=== PATIENT | female | born 1955 | race Caucasian/White ===

== ENCOUNTER 2022-10-11 11:11 | Emergency (ER) | payer MEDICARE ==
[2022-10-11] MEDS ORDERED: Acetaminophen 500 MG TAB ONE (11:34)
== END 2022-10-11 12:40 | disposition home or self-care (01) ==
LOC: ERS 11:11
DX: S52.501A Unspecified fracture of the lower end of right radius, initial encounter for closed fracture (principal); I10 Essential (primary) hypertension; W19.XXXA Unspecified fall, initial encounter
CPT/HCPCS: 29125

== ENCOUNTER 2022-11-30 18:46 | Inpatient (IN) | payer MEDICARE ==
[~2022-11-30 18:46] MED LIST: Iopamidol 370 76% 100 ML VIAL ONE
[2022-11-30] MEDS ORDERED: NOREPINEPHRINE 8 MG/250 ML-D5W 250 ML ONE ×2 (18:56→23:31)
[2022-11-30] MEDS ORDERED: EPINEPHrine 1 MG/ML VIAL ONE (19:19)
[2022-11-30 20:06] LABS: ALT (SGPT) 11 U/L (8-55); AST (SGOT) 21 U/L (5-34); Albumin 3.3 g/dL (3.4-4.8); Alkaline Phosphatase 79 U/L (40-110); Bilirubin, Total 0.5 mg/dL (0.2-1.2); Calc. Creatinine Clearance 0 mL/min (70-130); Calcium 8.4 mg/dL (7.8-10.44); Chloride 112 mmol/L (98-107); Estimated GFR 4; Glucose 125 mg/dL (80-115); Lipase 571 U/L (8-78); Protein, Total 6.3 g/dL (5.8-8.1); Sodium 131 mmol/L (136-145)
[2022-11-30 20:17] LABS: BUN (Urea Nitrogen) 178 mg/dL (9.8-20.1)
[2022-11-30 20:22] LABS: Carbon Dioxide Less than 8 mmol/L (23-31); Potassium 7.7 mmol/L (3.5-5.1)
[2022-11-30 20:24] LABS: Hemoglobin 10.2 g/dL (12.0-16.0); Mean Corpuscular HGB CONC 31.8 g/dL (32.0-36.0); Mean Corpuscular Hemoglobin 31.4 pg (27.0-31.0); Red Blood Cell (RBC) Count 3.23 mill/uL (4.20-5.40); White Blood Cell (WBC) Count 15.5 10x3/uL (4.8-10.8)
[2022-11-30 20:26] LABS: CKMB 5.8 ng/mL (0-6.6)
[2022-11-30 20:27] LABS: INR-International Normal Ratio 1.4; Prothrombin Time 18.1 sec (12.0-14.7)
[2022-11-30 20:33] LABS: PTT 22.5 sec (22.9-36.1)
[2022-11-30 20:38] LABS: Clarity Extra Turbid (Clear); Leukocyte Large (Negative); Nitrite Negative (Negative)
[2022-11-30 20:39] LABS: Bilirubin Small (Negative); Glucose, Urine (Dipstick) Negative (Negative); Ketone, Urine Trace mg/dL (Negative); Protein, Urine (Dipstick) > or equal to 300 mg/dL (Neg-Trace); Urobilinogen 0.2 mg/dL (Less than 2)
[2022-11-30 20:40] LABS: Blood, Urine Large (Negative)
[2022-11-30 20:41] LABS: Bacteria/HPF 3+ HPF (None Seen); WBC/HPF Greater than 50 HPF (0-3)
[2022-11-30] MEDS ORDERED: Insulin Regular 300 UNITS/3 ML VIAL ONE (20:44)
[2022-11-30] MEDS ORDERED: Sodium Bicarb 50 MEQ/50 ML VIAL ONE (20:44)
[2022-11-30 20:47] LABS: #Basophils 0.1 thou/uL (0.0-0.2); #Eosinphils 0.1 thou/uL (0.0-0.7); #Lymphocytes 1.8 thou/uL (1.20-3.40); #Monocytes 0.8 thou/uL (0.11-0.59); #Neutrophils 12.7 thou/uL (1.40-6.50); %Basophils 0.6 % (0.0-1.0); %Lymphocytes 11.4 % (21.0-51.0); %Monocytes 5.2 % (0.0-10.0); %Neutrophils 81.9 % (42.0-75.0); MDiff Complete? YES; Macrocytosis SLIGHT = 6-15 cells (100X) (0-5/hpf); Mean Platelet Volume 11.9 fL (7.4-10.4); Platelet Count 116 10x3/uL (130-400); Platelet Morphology Comment Appears Decreased; Polychromasia SLIGHT = 2-3 cells (100X) (0-2/hpf)
[2022-11-30] MEDS ORDERED: Calcium Chloride 1 GM/10 ML Abboject SYRINGE ONE (20:47)
[2022-11-30] MEDS ORDERED: Dextrose 50% Abboject 50 ML SYRINGE ONE (20:48)
[2022-11-30] MEDS ORDERED: Cefepime 2 GM VIAL ONE (21:16)
[2022-11-30] MEDS ORDERED: Haloperidol Lactate 5 MG/ML VIAL ONE (22:01)
[2022-11-30] MEDS ORDERED: Communication Order-Pharmacy FS ONE (22:48)
[2022-11-30] MEDS ORDERED: Ventilator Sedation Protocol 1 EACH FS ONE (22:48)
[2022-11-30] MEDS ORDERED: Acetaminophen 325 MG TAB PO PRN (22:57)
[2022-11-30] MEDS ORDERED: Ondansetron PF 4 MG/2 ML Vial IVP PRN (22:57)
[2022-11-30] MEDS ORDERED: Acetaminophen 650 MG Suppository PR PRN (22:57)
[2022-11-30] MEDS ORDERED: Senokot S 8.6-50 MG TAB PO PRN (22:57)
[2022-11-30] MEDS ORDERED: Ondansetron ODT 4 MG TAB PO PRN (22:57)
[2022-11-30] MEDS ORDERED: EPINEPHrine 4 MG in Dextrose 5% in Water 250 ML IV SCH (23:00)
[2022-11-30] MEDS ORDERED: Fentanyl CADD 100 ML IV SCH (23:15)
[2022-11-30] MEDS ORDERED: Propofol 1,000 MG/100 ML VIAL IV PRN (23:15)
[2022-11-30] MEDS ORDERED: Propofol BOLUS 1,000 MG/100 ML VIAL IV PRN (23:15)
[2022-11-30] MEDS ORDERED: Morphine 2 MG/ML VIAL SLOW IVP PRN (23:15)
[2022-11-30] MEDS ORDERED: Vasopressin 20 UNITS, Admixture Fee 1 EACH in Sodium Chloride 0.9% 50 ML IV SCH (23:15)
[2022-11-30] MEDS ORDERED: DISCONTINUE PREVIOUS NARCOTIC PAIN MEDICATIONS AND BENZODIAZEPINES FS SCH (23:15)
[2022-11-30] MEDS ORDERED: Fentanyl BOLUS 250 ML IVPB PRN (23:15)
[2022-11-30] MEDS ORDERED: Lorazepam 2 MG/ML VIAL SLOW IVP PRN (23:15)
[2022-11-30 23:53] LABS: HBSAB Concentration Less than 8.00 mIU/mL; HBSAg Index 0.24 S/CO (0-0.99); Hep B Core Total Ab Non-Reactive (NonReactive); Hep B Surf AB Non-Reactive (NonReactive); Hep B Surf Ag Non-Reactive S/CO (NonReactive); Hep C IgG Ab Non-Reactive S/CO (NonReactive); Hep C Index 0.08 S/CO (0-0.79)
[2022-12-01] MEDS ORDERED: Haloperidol Lactate 5 MG/ML VIAL ONE (00:34)
[2022-12-01] MEDS ORDERED: Haloperidol Lactate 5 MG/ML VIAL SLOW IVP SCH (00:45)
[2022-12-01] MEDS ORDERED: Vancomycin Dose by Levels Sliding Scale (Wt > 99) FS SCH (01:00)
[2022-12-01] MEDS: Sodium Bicarbonate 150 MEQ in Dextrose 5% in Water 1,000 ML IV SCH ×6 (01:52→21:11)
[2022-12-01] MEDS: NOREPINEPHRINE 8 MG/250 ML-D5W 250 ML IVPB SCH ×3 (03:12→15:35)
[2022-12-01 04:48] LABS: Phosphorus 4.9 mg/dL (2.3-4.7)
[2022-12-01 04:49] LABS: ALT (SGPT) 13 U/L (8-55); AST (SGOT) 23 U/L (5-34); Albumin 3.1 g/dL (3.4-4.8); Alkaline Phosphatase 75 U/L (40-110); Anion Gap 23 mmol/L (10-20); BUN (Urea Nitrogen) 108 mg/dL (9.8-20.1); Bilirubin, Total 0.6 mg/dL (0.2-1.2); Calc. Creatinine Clearance 0 mL/min (70-130); Calcium 8.2 mg/dL (7.8-10.44); Carbon Dioxide 11 mmol/L (23-31); Chloride 105 mmol/L (98-107); Estimated GFR 6; Globulin 2.6 g/dL (2.4-3.5); Glucose 257 mg/dL (80-115); Magnesium 1.5 mg/dL (1.6-2.6); Potassium 4.7 mmol/L (3.5-5.1); Protein, Total 5.7 g/dL (5.8-8.1); Sodium 134 mmol/L (136-145)
[2022-12-01 05:03] VITALS: BMI 50.7
[2022-12-01 06:16] LABS: Creatinine, Urine 120.99 mg/dL (47-110)
[2022-12-01 06:21] LABS: Hemoglobin 9.5 g/dL (12.0-16.0); Mean Corpuscular HGB CONC 32.7 g/dL (32.0-36.0); Mean Corpuscular Hemoglobin 31.7 pg (27.0-31.0); Mean Corpuscular Volume 97.1 fl (78.0-98.0); Mean Platelet Volume 11.6 fL (7.4-10.4); Platelet Count 106 10x3/uL (130-400); Red Blood Cell (RBC) Count 2.98 mill/uL (4.20-5.40); White Blood Cell (WBC) Count 22.2 10x3/uL (4.8-10.8)
[2022-12-01] MEDS ORDERED: HumaLOG 300 UNITS/3 ML VIAL SC SCH (06:45)
[2022-12-01] MEDS ORDERED: Magnesium 2 GM/50 ML(in water) 2 GM in Premix Bag 1 BAG IVPB SCH (07:00)
[2022-12-01] MEDS ORDERED: Dextrose 5% in Water 1,000 ML IV PRN (07:00)
[2022-12-01] MEDS ORDERED: Dextrose 50% Abboject 50 ML SYRINGE IVP PRN (07:00)
[2022-12-01] MEDS: Heparin 5,000 UNITS/ML VIAL SC SCH ×3 (08:42→20:05)
[2022-12-01] MEDS: HumaLOG 300 UNITS/3 ML VIAL SC PRN ×3 (08:42→20:06)
[2022-12-01] MEDS: Pantoprazole 40 MG VIAL IVP SCH (08:43)
[2022-12-01] MEDS ORDERED: Pantoprazole 40 MG VIAL IVP SCH (09:00)
[2022-12-01] MEDS ORDERED: Vancomycin HCl 1.5 GM in Sodium Chloride 0.9% 250 ML 300 ML IVPB SCH (09:00)
[2022-12-01 09:16] LABS: Band 4 % (5-11); Lymphocytes 6 % (21-51); MDiff Complete? YES; Monocytes 4 % (0-10); Neutrophil 85 % (42-75); Platelet Morphology Comment Appears Decreased; Polychromasia SLIGHT = 2-3 cells (100X) (0-2/hpf); Reactive Lymphocytes 1 % (0-10); Tear Drops SLIGHT = 2-5 cells (100X) (0-1/hpf)
[2022-12-01 09:49] LABS: Hemoglobin A1c 4.8 % (4.0-6.0)
[2022-12-01] MEDS ORDERED: Meropenem 1 GM in Sodium Chloride 0.9% 100 ML IVPB SCH ×2 (13:00→14:00)
[2022-12-01 19:37] LABS: Anion Gap 15 mmol/L (10-20); BUN (Urea Nitrogen) 104 mg/dL (9.8-20.1); Calc. Creatinine Clearance 18 mL/min (70-130); Calcium 7.7 mg/dL (7.8-10.44); Carbon Dioxide 26 mmol/L (23-31); Chloride 97 mmol/L (98-107); Estimated GFR 7; Glucose 162 mg/dL (80-115); Potassium 4.7 mmol/L (3.5-5.1); Sodium 133 mmol/L (136-145)
[2022-12-01] MEDS: Meropenem 500 MG in Sodium Chloride 0.9% 100 ML IVPB SCH (20:06)
[2022-12-01] MEDS ORDERED: Cefepime 1 GM in Sodium Chloride 0.9% 100 ML IVPB SCH (21:00)
[2022-12-01 23:40] LABS: Vancomycin, Random 18.3 ug/mL (See Comment)
[2022-12-01] MEDS ORDERED: Vancomycin HCl 750 MG in Sodium Chloride 0.9% 250 ML 250 ML IVPB SCH (23:59)
[2022-12-02] MEDS: NOREPINEPHRINE 8 MG/250 ML-D5W 250 ML IVPB SCH (00:05)
[2022-12-02 04:27] LABS: Anion Gap 18 mmol/L (10-20); BUN (Urea Nitrogen) 103 mg/dL (9.8-20.1); Calc. Creatinine Clearance 19 mL/min (70-130); Calcium 7.5 mg/dL (7.8-10.44); Carbon Dioxide 25 mmol/L (23-31); Chloride 95 mmol/L (98-107); Estimated GFR 7; Glucose 112 mg/dL (80-115); Potassium 4.4 mmol/L (3.5-5.1); Sodium 134 mmol/L (136-145)
[2022-12-02 05:13] LABS: #Eosinphils 0.2 thou/uL (0.0-0.7); #Lymphocytes 1.5 thou/uL (1.20-3.40); #Monocytes 0.5 thou/uL (0.11-0.59); #Neutrophils 9.2 thou/uL (1.40-6.50); %Eosinophils 1.7 % (0.0-10.0); %Monocytes 4.8 % (0.0-10.0); %Neutrophils 80.5 % (42.0-75.0); Hemoglobin 7.8 g/dL (12.0-16.0); Mean Corpuscular HGB CONC 32.7 g/dL (32.0-36.0); Mean Corpuscular Hemoglobin 31.2 pg (27.0-31.0); Mean Corpuscular Volume 95.1 fl (78.0-98.0); Mean Platelet Volume 12.1 fL (7.4-10.4); Platelet Count 60 10x3/uL (130-400); Platelet Morphology Comment Appears Decreased; RBC Distribution Width 12.6 % (11.5-14.5); White Blood Cell (WBC) Count 11.5 10x3/uL (4.8-10.8)
[2022-12-02] MEDS: Pantoprazole 40 MG VIAL IVP SCH (08:01)
[2022-12-02] MEDS: Heparin 5,000 UNITS/ML VIAL SC SCH ×3 (08:01→20:02)
[2022-12-02] MEDS: Sodium Bicarbonate 150 MEQ in Dextrose 5% in Water 1,000 ML IV SCH ×2 (08:01→19:56)
[2022-12-02] MEDS ORDERED: Norepinephrine 8 MG in Dextrose 5% in Water 242 ML IVPB PRN (08:45)
[2022-12-02 09:01] LABS: Iron 60 ug/dL (50-170); Iron Binding Capacity, Total 130 mcg/dL (265-497)
[2022-12-02] MEDS: Meropenem 500 MG in Sodium Chloride 0.9% 100 ML IVPB SCH ×2 (09:06→21:35)
[2022-12-02] MEDS ORDERED: Albumin 25% 25 GM/100 ML BOT IVPB SCH (12:15)
[2022-12-02] MEDS: Albumin 25% 25 GM/100 ML BOT IVPB SCH ×2 (17:55→23:12)
[2022-12-03 01:22] LABS: Vancomycin, Random 21.4 ug/mL (See Comment)
[2022-12-03] MEDS: Albumin 25% 25 GM/100 ML BOT IVPB SCH ×2 (06:15→11:44)
[2022-12-03] MEDS: Sodium Bicarbonate 150 MEQ in Dextrose 5% in Water 1,000 ML IV SCH (06:15)
[2022-12-03 07:34] LABS: #Eosinphils 0.1 thou/uL (0.0-0.7); #Monocytes 0.3 thou/uL (0.11-0.59); #Neutrophils 4.2 thou/uL (1.40-6.50); %Lymphocytes 16.9 % (21.0-51.0); %Monocytes 5.3 % (0.0-10.0); %Neutrophils 75.4 % (42.0-75.0); Hemoglobin 6.5 g/dL (12.0-16.0); Mean Corpuscular HGB CONC 31.3 g/dL (32.0-36.0); Mean Corpuscular Hemoglobin 30.1 pg (27.0-31.0); Mean Corpuscular Volume 96.3 fl (78.0-98.0); RBC Distribution Width 13.5 % (11.5-14.5); Red Blood Cell (RBC) Count 2.16 mill/uL (4.20-5.40); White Blood Cell (WBC) Count 5.5 10x3/uL (4.8-10.8)
[2022-12-03 07:39] LABS: Platelet Count 37 10x3/uL (130-400)
[2022-12-03 07:40] LABS: Albumin 3.3 g/dL (3.4-4.8); Anion Gap 17 mmol/L (10-20); BUN (Urea Nitrogen) 99 mg/dL (9.8-20.1); BUN/Creatinine Ratio 16.84; Calc. Creatinine Clearance 19 mL/min (70-130); Calcium 7.5 mg/dL (7.8-10.44); Carbon Dioxide 32 mmol/L (23-31); Chloride 91 mmol/L (98-107); Estimated GFR 7; Glucose 95 mg/dL (80-115); Potassium 4.1 mmol/L (3.5-5.1); Sodium 136 mmol/L (136-145)
[2022-12-03 08:17] LABS: CellaVision Operator ID LAB.GE; Hypochromia SLIGHT = 6-15 cells HPF (0-5); Platelet Morphology Comment Platelets Decreased; Polychromasia SLIGHT = 2-3 cells HPF (0-2); RBC Morphology Within Normal Limits
[2022-12-03] MEDS: Pantoprazole 40 MG VIAL IVP SCH (08:50)
[2022-12-03] MEDS: EPOETIN ALFA-EPBX (ESRD) 10,000 UNITS/ML VIAL SC SCH (08:50)
[2022-12-03] MEDS: Meropenem 500 MG in Sodium Chloride 0.9% 100 ML IVPB SCH (08:51)
[2022-12-03] MEDS: Dextrose 5 % And 0.9 % NaCl 1,000 ML IV SCH ×2 (08:51→19:00)
[2022-12-03] MEDS: cefTRIAXone\\ROCEPHIN 1 GM in Sodium Chloride 0.9% 100 ML IVPB SCH (10:07)
[2022-12-03 10:41] LABS: Hemoglobin 6.7 g/dL (12.0-16.0); Mean Corpuscular HGB CONC 30.2 g/dL (32.0-36.0); Mean Corpuscular Hemoglobin 29.3 pg (27.0-31.0); Mean Corpuscular Volume 96.9 fl (78.0-98.0); RBC Distribution Width 13.5 % (11.5-14.5); Red Blood Cell (RBC) Count 2.29 mill/uL (4.20-5.40)
[2022-12-03 10:56] LABS: Platelet Count 38 10x3/uL (130-400)
[2022-12-03 12:19] LABS: Creatinine, Urine 66.25 mg/dL (47-110)
[2022-12-03 22:18] LABS: Vancomycin, Random 19.2 ug/mL (See Comment)
[2022-12-04] MEDS: Dextrose 5 % And 0.9 % NaCl 1,000 ML IV SCH ×2 (04:32→08:27)
[2022-12-04 07:01] LABS: #Eosinphils 0.1 thou/uL (0.0-0.7); #Monocytes 0.4 thou/uL (0.11-0.59); #Neutrophils 6.8 thou/uL (1.40-6.50); %Basophils 0.1 % (0.0-1.0); %Eosinophils 1.6 % (0.0-10.0); %Lymphocytes 8.9 % (21.0-51.0); %Monocytes 5.4 % (0.0-10.0); %Neutrophils 83.3 % (42.0-75.0); Hemoglobin 8.9 g/dL (12.0-16.0); Mean Corpuscular HGB CONC 30.3 g/dL (32.0-36.0); Mean Corpuscular Hemoglobin 28.9 pg (27.0-31.0); Mean Corpuscular Volume 95.5 fl (78.0-98.0); Mean Platelet Volume 12.2 fL (7.4-10.4); RBC Distribution Width 15.3 % (11.5-14.5); Red Blood Cell (RBC) Count 3.08 mill/uL (4.20-5.40); White Blood Cell (WBC) Count 8.2 10x3/uL (4.8-10.8)
[2022-12-04 07:07] LABS: Platelet Count 40 10x3/uL (130-400)
[2022-12-04 07:22] LABS: Albumin 3.2 g/dL (3.4-4.8); Anion Gap 18 mmol/L (10-20); BUN (Urea Nitrogen) 89 mg/dL (9.8-20.1); BUN/Creatinine Ratio 16.45; Calc. Creatinine Clearance 22 mL/min (70-130); Calcium 7.3 mg/dL (7.8-10.44); Carbon Dioxide 26 mmol/L (23-31); Chloride 94 mmol/L (98-107); Estimated GFR 8; Glucose 96 mg/dL (80-115); Phosphorus 4.8 mg/dL (2.3-4.7); Potassium 3.9 mmol/L (3.5-5.1); Sodium 134 mmol/L (136-145)
[2022-12-04] MEDS: cefTRIAXone\\ROCEPHIN 1 GM in Sodium Chloride 0.9% 100 ML IVPB SCH (09:28)
[2022-12-04 12:40] LABS: Actual Bicarbonate (HCO3a) 30.1 mEq/L (22-28); Base Excess (BEa) 4.6 mEq/L (-2.0 to +3.0); CO2 Tension 49.9 mmHg (35.0-45.0); Calcium, Ionized (arterial) 0.93 mmol/L (1.12-1.30); Carboxyhemoglobin (COHb) 1.1 gm% (0.0-3.0); Hematocrit-ABG 27 % (36.0-47.0); Hemoglobin (Hb) 9.3 g/dL (12.0-16.0); Potassium - ABG Lab 3.67 mmol/L (3.70-5.30); pH, Arterial 7.399 (7.35-7.45)
[2022-12-04 12:43] LABS: ALV-art Gradient 37.955 mmHg (0-20); O2 Tension (PaO2), arterial 49.4 mmHg (> 80.0); Puncture Site LRA
[2022-12-05] MEDS: Dextrose 5 % And 0.9 % NaCl 1,000 ML IV SCH (03:00)
[2022-12-05 03:26] LABS: #Eosinphils 0.2 thou/uL (0.0-0.7); #Monocytes 0.6 thou/uL (0.11-0.59); #Neutrophils 6.2 thou/uL (1.40-6.50); %Basophils 0.1 % (0.0-1.0); %Eosinophils 2.2 % (0.0-10.0); %Lymphocytes 12.8 % (21.0-51.0); %Monocytes 6.9 % (0.0-10.0); %Neutrophils 77.1 % (42.0-75.0); Hemoglobin 8.5 g/dL (12.0-16.0); Mean Corpuscular HGB CONC 31.1 g/dL (32.0-36.0); Mean Corpuscular Hemoglobin 29.8 pg (27.0-31.0); Mean Corpuscular Volume 95.8 fl (78.0-98.0); Mean Platelet Volume 13.3 fL (7.4-10.4); RBC Distribution Width 15.9 % (11.5-14.5); Red Blood Cell (RBC) Count 2.85 mill/uL (4.20-5.40); White Blood Cell (WBC) Count 8.1 10x3/uL (4.8-10.8)
[2022-12-05 03:30] LABS: Platelet Count 47 10x3/uL (130-400)
[2022-12-05 03:44] LABS: Anion Gap 17 mmol/L (10-20); BUN (Urea Nitrogen) 88 mg/dL (9.8-20.1); BUN/Creatinine Ratio 16.83; Calc. Creatinine Clearance 22 mL/min (70-130); Calcium 7.4 mg/dL (7.8-10.44); Carbon Dioxide 26 mmol/L (23-31); Chloride 97 mmol/L (98-107); Estimated GFR 8; Glucose 100 mg/dL (80-115); Potassium 3.9 mmol/L (3.5-5.1); Sodium 136 mmol/L (136-145)
[2022-12-05] MEDS: cefTRIAXone\\ROCEPHIN 1 GM in Sodium Chloride 0.9% 100 ML IVPB SCH (08:10)
[2022-12-05] MEDS: Calcitriol 0.25 MCG CAP PO SCH (09:50)
[2022-12-05] MEDS ORDERED: Spironolactone 25 MG TAB PO SCH (10:15)
[2022-12-05] MEDS ORDERED: Torsemide 10 MG TAB PO SCH (10:15)
[2022-12-06 06:34] LABS: Anion Gap 15 mmol/L (10-20); BUN (Urea Nitrogen) 86 mg/dL (9.8-20.1); BUN/Creatinine Ratio 17.03; Calc. Creatinine Clearance 24 mL/min (70-130); Calcium 7.7 mg/dL (7.8-10.44); Carbon Dioxide 29 mmol/L (23-31); Chloride 96 mmol/L (98-107); Estimated GFR 9; Glucose 87 mg/dL (80-115); Phosphorus 3.9 mg/dL (2.3-4.7); Sodium 136 mmol/L (136-145)
[2022-12-06] MEDS: Torsemide 20 MG TAB PO SCH (09:32)
[2022-12-06] MEDS: Calcitriol 0.25 MCG CAP PO SCH (09:32)
[2022-12-06] MEDS: cefTRIAXone\\ROCEPHIN 1 GM in Sodium Chloride 0.9% 100 ML IVPB SCH (09:33)
[2022-12-06] MEDS: Heparin 5,000 UNITS/ML VIAL SC SCH ×3 (09:33→21:28)
[2022-12-06] MEDS: Spironolactone 100 MG TAB PO SCH (09:33)
[2022-12-07 06:34] LABS: Albumin 2.8 g/dL (3.4-4.8); Anion Gap 17 mmol/L (10-20); BUN (Urea Nitrogen) 82 mg/dL (9.8-20.1); BUN/Creatinine Ratio 16.53; Calc. Creatinine Clearance 24 mL/min (70-130); Calcium 7.8 mg/dL (7.8-10.44); Carbon Dioxide 26 mmol/L (23-31); Chloride 97 mmol/L (98-107); Estimated GFR 9; Glucose 76 mg/dL (80-115); Phosphorus 3.8 mg/dL (2.3-4.7); Potassium 4.1 mmol/L (3.5-5.1); Sodium 136 mmol/L (136-145)
[2022-12-07] MEDS: Torsemide 20 MG TAB PO SCH (10:47)
[2022-12-07] MEDS: Spironolactone 100 MG TAB PO SCH (10:47)
[2022-12-07] MEDS: Calcitriol 0.25 MCG CAP PO SCH (10:47)
[2022-12-07] MEDS: cefTRIAXone\\ROCEPHIN 1 GM in Sodium Chloride 0.9% 100 ML IVPB SCH (10:49)
[2022-12-07] MEDS: Heparin 5,000 UNITS/ML VIAL SC SCH ×2 (12:01→16:04)
[2022-12-07] MEDS: Albumin 25% 25 GM/100 ML BOT IVPB SCH ×2 (12:13→16:59)
[2022-12-07 12:19] LABS: #Eosinphils 0.2 thou/uL (0.0-0.7); #Monocytes 0.5 thou/uL (0.11-0.59); #Neutrophils 6.3 thou/uL (1.40-6.50); %Basophils 0.1 % (0.0-1.0); %Lymphocytes 11.7 % (21.0-51.0); %Monocytes 5.7 % (0.0-10.0); Hemoglobin 8.8 g/dL (12.0-16.0); Mean Corpuscular HGB CONC 30.1 g/dL (32.0-36.0); Mean Corpuscular Hemoglobin 29.3 pg (27.0-31.0); Mean Corpuscular Volume 97.3 fl (78.0-98.0); Mean Platelet Volume 11.7 fL (7.4-10.4)
[2022-12-07 12:24] LABS: Platelet Count 64 10x3/uL (130-400)
[2022-12-08] MEDS: Albumin 25% 25 GM/100 ML BOT IVPB SCH ×5 (00:41→23:09)
[2022-12-08 05:11] LABS: #Eosinphils 0.2 thou/uL (0.0-0.7); #Monocytes 0.4 thou/uL (0.11-0.59); #Neutrophils 4.6 thou/uL (1.40-6.50); %Basophils 0.2 % (0.0-1.0); %Eosinophils 2.7 % (0.0-10.0); %Lymphocytes 14.6 % (21.0-51.0); %Monocytes 6.1 % (0.0-10.0); %Neutrophils 75.6 % (42.0-75.0); Hemoglobin 7.7 g/dL (12.0-16.0); Mean Corpuscular HGB CONC 29.7 g/dL (32.0-36.0); Mean Corpuscular Hemoglobin 29.1 pg (27.0-31.0); Mean Corpuscular Volume 97.7 fl (78.0-98.0); Mean Platelet Volume 12.5 fL (7.4-10.4); Red Blood Cell (RBC) Count 2.65 mill/uL (4.20-5.40)
[2022-12-08 05:29] LABS: Platelet Count 53 10x3/uL (130-400)
[2022-12-08 05:43] LABS: ALT (SGPT) 10 U/L (8-55); AST (SGOT) 15 U/L (5-34); Albumin 3.5 g/dL (3.4-4.8); Alkaline Phosphatase 63 U/L (40-110); Anion Gap 19 mmol/L (10-20); BUN (Urea Nitrogen) 76 mg/dL (9.8-20.1); Bilirubin, Total 0.6 mg/dL (0.2-1.2); Calc. Creatinine Clearance 25 mL/min (70-130); Calcium 8.2 mg/dL (7.8-10.44); Carbon Dioxide 23 mmol/L (23-31); Chloride 97 mmol/L (98-107); Estimated GFR 9; Globulin 1.9 g/dL (2.4-3.5); Glucose 86 mg/dL (80-115); Magnesium 1.4 mg/dL (1.6-2.6); Phosphorus 3.7 mg/dL (2.3-4.7); Protein, Total 5.4 g/dL (5.8-8.1); Sodium 135 mmol/L (136-145)
[2022-12-08] MEDS: Spironolactone 100 MG TAB PO SCH (10:19)
[2022-12-08] MEDS: Torsemide 20 MG TAB PO SCH (10:20)
[2022-12-08] MEDS: Calcitriol 0.25 MCG CAP PO SCH (10:20)
[2022-12-08] MEDS: cefTRIAXone\\ROCEPHIN 1 GM in Sodium Chloride 0.9% 100 ML IVPB SCH (10:45)
[2022-12-08] MEDS ORDERED: Magnesium Sulfate 3 GM in Sodium Chloride 0.9% 100 ML IVPB SCH (13:45)
[2022-12-09 06:09] LABS: #Eosinphils 0.2 thou/uL (0.0-0.7); #Monocytes 0.4 thou/uL (0.11-0.59); #Neutrophils 4.7 thou/uL (1.40-6.50); %Basophils 0.2 % (0.0-1.0); %Eosinophils 2.8 % (0.0-10.0); %Lymphocytes 13.9 % (21.0-51.0); %Monocytes 6.4 % (0.0-10.0); Hemoglobin 7.1 g/dL (12.0-16.0); Mean Corpuscular HGB CONC 29.7 g/dL (32.0-36.0); Mean Corpuscular Hemoglobin 29.5 pg (27.0-31.0); Mean Corpuscular Volume 99.2 fl (78.0-98.0); Mean Platelet Volume 12.1 fL (7.4-10.4); Red Blood Cell (RBC) Count 2.41 mill/uL (4.20-5.40); White Blood Cell (WBC) Count 6.1 10x3/uL (4.8-10.8)
[2022-12-09 06:14] LABS: Platelet Count 62 10x3/uL (130-400)
[2022-12-09] MEDS: Albumin 25% 25 GM/100 ML BOT IVPB SCH (06:15)
[2022-12-09 06:29] LABS: Albumin 3.9 g/dL (3.4-4.8); Anion Gap 15 mmol/L (10-20); BUN (Urea Nitrogen) 75 mg/dL (9.8-20.1); Calc. Creatinine Clearance 26 mL/min (70-130); Calcium 8.5 mg/dL (7.8-10.44); Carbon Dioxide 27 mmol/L (23-31); Chloride 99 mmol/L (98-107); Estimated GFR 10; Glucose 94 mg/dL (80-115); Phosphorus 3.2 mg/dL (2.3-4.7); Potassium 3.7 mmol/L (3.5-5.1); Sodium 137 mmol/L (136-145)
[2022-12-09] MEDS: Spironolactone 100 MG TAB PO SCH (08:41)
[2022-12-09] MEDS: Calcitriol 0.25 MCG CAP PO SCH (08:41)
[2022-12-09] MEDS: Torsemide 20 MG TAB PO SCH (08:41)
[2022-12-09 08:44] LABS: Magnesium 1.8 mg/dL (1.6-2.6)
[2022-12-09 17:28] LABS: Hemoglobin 8.1 g/dL (12.0-16.0)
[2022-12-10 06:46] LABS: #Eosinphils 0.3 thou/uL (0.0-0.7); #Monocytes 0.6 thou/uL (0.11-0.59); #Neutrophils 7.1 thou/uL (1.40-6.50); %Basophils 0.1 % (0.0-1.0); %Eosinophils 2.9 % (0.0-10.0); %Lymphocytes 11.9 % (21.0-51.0); %Monocytes 6.2 % (0.0-10.0); %Neutrophils 78.2 % (42.0-75.0); Hemoglobin 8.4 g/dL (12.0-16.0); Mean Corpuscular HGB CONC 29.4 g/dL (32.0-36.0); Mean Corpuscular Hemoglobin 29.3 pg (27.0-31.0); Mean Corpuscular Volume 99.7 fl (78.0-98.0); Mean Platelet Volume 12.6 fL (7.4-10.4); RBC Distribution Width 15.6 % (11.5-14.5); Red Blood Cell (RBC) Count 2.87 mill/uL (4.20-5.40); White Blood Cell (WBC) Count 9.1 10x3/uL (4.8-10.8)
[2022-12-10 07:01] LABS: Platelet Count 84 10x3/uL (130-400)
[2022-12-10 07:08] LABS: Anion Gap 16 mmol/L (10-20); BUN (Urea Nitrogen) 68 mg/dL (9.8-20.1); Calc. Creatinine Clearance 27 mL/min (70-130); Calcium 8.6 mg/dL (7.8-10.44); Carbon Dioxide 25 mmol/L (23-31); Chloride 100 mmol/L (98-107); Estimated GFR 10; Glucose 91 mg/dL (80-115); Magnesium 1.6 mg/dL (1.6-2.6); Potassium 3.8 mmol/L (3.5-5.1); Sodium 137 mmol/L (136-145)
[2022-12-10] MEDS ORDERED: Magnesium Oxide 400 MG TAB PO SCH (09:00)
[2022-12-10] MEDS: Torsemide 20 MG TAB PO SCH (09:05)
[2022-12-10] MEDS: Calcitriol 0.25 MCG CAP PO SCH (09:05)
[2022-12-10] MEDS: EPOETIN ALFA-EPBX (ESRD) 10,000 UNITS/ML VIAL SC SCH (09:05)
[2022-12-10] MEDS: Spironolactone 100 MG TAB PO SCH (09:05)
[2022-12-10 12:09] VITALS: BP 114/68; TEMP 99.6
== END 2022-12-10 17:57 | disposition swing bed (61) | DRG 871 ==
LOC: ERS 18:46 → CCU 22:33 → IMCU/EMU 12-03 16:07 → T4-B 12-09 19:26
PROVIDERS: ADMIT Internal Medicine; ATTEND Internal Medicine
PROC: 3E03329 Introduction of Other Anti-infective into Peripheral Vein, Percutaneous Approach (ICD-10-PCS; principal; 2022-11-30)
PROC: 3E043XZ Introduction of Vasopressor into Central Vein, Percutaneous Approach (ICD-10-PCS; 2022-11-30)
PROC: 03HY32Z Insertion of Monitoring Device into Upper Artery, Percutaneous Approach (ICD-10-PCS; 2022-11-30)
PROC: 0T9B70Z Drainage of Bladder with Drainage Device, Via Natural or Artificial Opening (ICD-10-PCS; 2022-11-30)
PROC: 02HV33Z Insertion of Infusion Device into Superior Vena Cava, Percutaneous Approach (ICD-10-PCS; 2022-11-30)
PROC: 5A09457 Assistance with Respiratory Ventilation, 24-96 Consecutive Hours, Continuous Positive Airway Pressure (ICD-10-PCS; 2022-12-01)
PROC: 30233N1 Transfusion of Nonautologous Red Blood Cells into Peripheral Vein, Percutaneous Approach (ICD-10-PCS; 2022-12-03)
PROC: 5A1D70Z Performance of Urinary Filtration, Intermittent, Less than 6 Hours Per Day (ICD-10-PCS; 2022-12-09)
DX: A41.9 Sepsis, unspecified organism (principal); R65.21 Severe sepsis with septic shock; G93.41 Metabolic encephalopathy; R57.1 Hypovolemic shock; N17.0 Acute kidney failure with tubular necrosis; Z68.43 Body mass index [BMI] 50.0-59.9, adult; N39.0 Urinary tract infection, site not specified; E87.20 Acidosis, unspecified; E66.2 Morbid (severe) obesity with alveolar hypoventilation; E87.1 Hypo-osmolality and hyponatremia; D62 Acute posthemorrhagic anemia; E87.5 Hyperkalemia; E88.09 Other disorders of plasma-protein metabolism, not elsewhere classified; K74.60 Unspecified cirrhosis of liver; D63.1 Anemia in chronic kidney disease; D69.6 Thrombocytopenia, unspecified; M10.9 Gout, unspecified; I12.9 Hypertensive chronic kidney disease with stage 1 through stage 4 chronic kidney disease, or unspecified chronic kidney disease; E86.9 Volume depletion, unspecified; E83.42 Hypomagnesemia; E11.22 Type 2 diabetes mellitus with diabetic chronic kidney disease; T39.395A Adverse effect of other nonsteroidal anti-inflammatory drugs [NSAID], initial encounter; T46.4X5A Adverse effect of angiotensin-converting-enzyme inhibitors, initial encounter; Z78.1 Physical restraint status; Z98.890 Other specified postprocedural states; Z90.49 Acquired absence of other specified parts of digestive tract; Z79.899 Other long term (current) drug therapy; Z79.1 Long term (current) use of non-steroidal anti-inflammatories (NSAID); Z79.890 Hormone replacement therapy
CPT/HCPCS: 36415; 36416; 36430; 36556; 36600; 36620; 70450; 71045; 71260; 72125; 72170; 74177; 76700; 80048; 80053; 80069; 80202; 81003; 81015; 82010; 82040; 82140; 82274; 82306; 82533; 82550; 82553; 82570; 82728; 82805; 83036; 83540; 83550; 83605; 83690; 83735; 83880; 83970; 84100; 84145; 84156; 84300; 84484; 84540; 85025; 85610; 85730; 86704; 86850; 86900; 86901; 87086; 90935; 93005; 94660; 96374; 96375; C9113; G0257; J0171; J0692; J0696; J1630; J1644; J1815; J2185; J3370; J3475; J3490; J7030; J7042; J7050; J7070; J7999; P9016; P9047; Q5105; Q9967